=== PATIENT | male | born 1950 | race Caucasian/White ===

== ENCOUNTER 2019-06-22 17:07 | Emergency (ER) | payer OTHER ==
--- NOTE | 2019-06-22 17:12 | EDM.PDOC ---
ED HPI GENERAL MEDICAL PROBLEM - General Chief Complaint: Lower Extremity Injury/Pain Stated Complaint: PAIN IN FOOT Time Seen by Provider: 06/22/19 17:09 Source of Information: Reports: Patient History Limitations: Reports: No Limitations - History of Present Illness INITIAL COMMENTS - FREE TEXT/NARRATIVE: HISTORY AND PHYSICAL: History of present illness: Patient is a 69-year-old male who presents to the emergency room with complaints of right foot pain 8 weeks. He states he saw a primary care provider who diagnosed him with plantar fasciitis. Has been doing supportive care measures at home without any relief. Denies any known injury, trauma or falls. He is ambulatory although uses a walking stick for support and weightbearing purposes. Patient denies any fever, chills, headache, change in vision, syncope or near syncope. Denies any chest pain, back pain, shortness of breath or cough. Denies any GI or symptoms. Patient has been eating and drinking appropriately. Review of systems: As per history of present illness and below otherwise all systems reviewed and negative. Past medical history: As per history of present illness and as reviewed below otherwise noncontributory. Surgical history: As per history of present illness and as reviewed below otherwise noncontributory. Social history: See social history for further information Family history: As per history of present illness and as reviewed below otherwise noncontributory. Physical exam: General: Well-developed and well-nourished 69-year-old male. Alert and oriented. Nontoxic appearing and in no acute distress. HEENT: Atraumatic, normocephalic, pupils equal and reactive bilaterally, negative for conjunctival pallor or scleral icterus, mucous membranes moist, trachea midline. No drooling or trismus noted. No meningeal signs. No hot potato voice noted. Lungs: Clear to auscultation, breath sounds equal bilaterally, chest nontender. Heart: S1S2, regular rate and rhythm without overt murmur Abdomen: Soft, nondistended, nontender. Skin: Intact, warm, dry. No lesions or rashes noted. Extremities: Atraumatic, moves all extremities per self without difficulty or deficits, negative for cords or calf pain. Neurovascular unremarkable. Neuro: Awake, alert, oriented. Cranial nerves II through XII unremarkable. Cerebellum unremarkable. Motor and sensory unremarkable throughout. Exam nonfocal. Notes: Lab work is unremarkable. X-ray shows no acute findings. We discussed the need for follow-up with podiatry. Supportive care measures were reviewed and discussed. Voices understanding and is agreeable to plan of care. Denies any further questions or concerns at this time. Diagnostics: CBC, CMP, uric acid, foot x-ray Therapeutics: None Prescription: Diclofenac Impression: Foot pain, right Plan: 1. Rest, avoiding painful activities, and performing gentle stretches. May want to get a new supportive shoe. 2. Tylenol as needed for pain management. Diclofenac as directed. Do not take any additional NSAID such as ibuprofen or Aleve taking this medication. May want to take with food. 3. Follow up with the Podiatry as we discussed. Return to the ED as needed and as discussed. Definitive disposition and diagnosis as appropriate pending reevaluation and review of above. Right Foot Pain Score (Numeric/FACES): 9 - Related Data Allergies Allergy/AdvReac Type Severity Reaction Status Date / Time No Known Allergies Allergy Verified 06/22/19 17:21 Home Meds: Home Meds Aspirin [Aspirin EC] 325 mg PO DAILY 06/22/19 [History] Diclofenac Sodium [Voltaren] 75 mg PO BIDMEALS PRN #30 tab.cr 06/22/19 [Rx] Glimepiride 2 mg PO DAILY 06/22/19 [History] Rosuvastatin [Crestor] 10 mg PO DAILY 06/22/19 [History] metFORMIN HCl [Metformin HCl] 1,000 mg PO BID 06/22/19 [History] Review of Systems - Review of Systems Review Of Systems: ROS reveals no pertinent complaints other than HPI. ED EXAM, GENERAL - Physical Exam Exam: See Below (See dictation) Course - Vital Signs Last Recorded V/S: Last Vital Signs Temp Pulse 82 06/22/19 17:18 Resp 18 06/22/19 17:18 BP 144/80 H 06/22/19 17:18 Pulse Ox 96 06/22/19 17:18 - Orders/Labs/Meds Labs: Laboratory Tests 06/22/19 06/22/19 Range/Units 17:27 17:27 WBC 4.97 (4.0-11.0) K/uL RBC 4.44 L (4.50-5.90) M/uL Hgb 14.0 (13.0-17.0) g/dL Hct 41.4 (38.0-50.0) % MCV 93.2 (80.0-98.0) fL MCH 31.5 (27.0-32.0) pg MCHC 33.8 (31.0-37.0) g/dL RDW Std Deviation 43.8 (28.0-62.0) fl RDW Coeff of Deyanira 13 (11.0-15.0) % Plt Count 189 (150-400) K/uL MPV 10.20 (7.40-12.00) fL Neut % (Auto) 62.2 (48.0-80.0) % Lymph % (Auto) 22.3 (16.0-40.0) % Robertson % (Auto) 12.5 (0.0-15.0) % Eos % (Auto) 2.2 (0.0-7.0) % Baso % (Auto) 0.8 (0.0-1.5) % Neut # (Auto) 3.1 (1.4-5.7) K/uL Lymph # (Auto) 1.1 (0.6-2.4) K/uL Robertson # (Auto) 0.6 (0.0-0.8) K/uL Eos # (Auto) 0.1 (0.0-0.7) K/uL Baso # (Auto) 0.0 (0.0-0.1) K/uL Nucleated RBC % 0.0 /100WBC Nucleated RBCs # 0 K/uL Sodium 139 (136-148) mmol/L Potassium 4.3 (3.5-5.1) mmol/L Chloride 105 (98-107) mmol/L Carbon Dioxide 24.7 (21.0-32.0) mmol/L BUN 27 H (7.0-18.0) mg/dL Creatinine 0.8 (0.8-1.3) mg/dL Est Cr Clr Drug Dosing 94.13 mL/min Estimated GFR (MDRD) > 60.0 ml/min Glucose 99 (74-106) mg/dL Uric Acid 5.0 (2.6-7.2) mg/dL Calcium 8.9 (8.5-10.1) mg/dL Departure - Departure Time of Disposition: 18:26 Disposition: Home, Self-Care 01 Clinical Impression: Right foot pain - Discharge Information Prescriptions: Diclofenac Sodium [Voltaren] 75 mg PO BIDMEALS PRN #30 tab.cr PRN Reason: Pain Referrals: PCP,None [Primary Care Provider] - Forms: ED Department Discharge Additional Instructions: The following information is given to patients seen in the emergency department who are being discharged to home. This information is to outline your options for follow-up care. We provide all patients seen in our emergency department with a follow-up referral. The need for follow-up, as well as the timing and circumstances, are variable depending upon the specifics of your emergency department visit. If you don't have a primary care physician on staff, we will provide you with a referral. We always advise you to contact your personal physician following an emergency department visit to inform them of the circumstance of the visit and for follow-up with them and/or the need for any referrals to a consulting specialist. The emergency department will also refer you to a specialist when appropriate. This referral assures that you have the opportunity for follow-up care with a specialist. All of these measure are taken in an effort to provide you with optimal care, which includes your follow-up. Under all circumstances we always encourage you to contact your private physician who remains a resource for coordinating your care. When calling for follow-up care, please make the office aware that this follow-up is from your recent emergency room visit. If for any reason you are refused follow-up, please contact the [facility] Emergency Department at and asked to speak to the emergency department charge nurse. [facility] [address] [place] [id number] [address] [address] [address] [address] 1. Rest, avoiding painful activities, and performing gentle stretches may help discomfort. May want to get a new supportive shoes (with heel insert). 2. Tylenol as needed for pain management. Diclofenac as directed. Do not take any additional NSAID such as ibuprofen or Aleve taking this medication. May want to take with food. 3. Follow up with the Podiatry as we discussed. Return to the ED as needed and as discussed.
[2019-06-22 17:54] LABS: CHLORIDE,CL 105 mmol/L (98-107); SODIUM,NA 139 mmol/L (136-148)
--- NOTE | 2019-06-22 18:21 | CR ---
HISTORY: Foot pain. COMPARISON: None. FINDINGS: Mild degenerative joint changes. No erosions. Deformity of the head of the 5th metatarsal may represent a healed fracture. No evidence for acute fracture or dislocation. Mild soft tissue swelling about the ankle. Dictated by Mariah Araya MD @ Jun 22 2019 6:18PM Signed by Dr. Mariah Araya @ Jun 22 2019 6:19PM
== END 2019-06-22 18:38 | disposition home or self-care (01) ==
LOC: MW.ED 17:07
DX: M79.671 Pain in right foot (principal); Z79.82 Long term (current) use of aspirin; Z79.899 Other long term (current) drug therapy
CPT/HCPCS: 36415; 73620-26-RT; 73620-RT; 80048; 84550; 85025; 99283; 99283-25